=== PATIENT | male | born 1995 | race American Indian/Alaskan Native ===

== ENCOUNTER 2021-02-07 22:39 | Emergency (ER) | payer SELFPAY ==
[2021-02-07] MEDS ORDERED: Ondansetron PF 4 MG/2 ML Vial ONE (22:58)
[2021-02-07] MEDS ORDERED: Morphine 4 MG/ML VIAL ONE (22:58)
[2021-02-07] MEDS ORDERED: Boostrix 0.5 ML (Tdap) VIAL ONE (22:58)
[2021-02-07] MEDS ORDERED: diphenhydrAMINE 50 MG/ML VIAL ONE (22:58)
[2021-02-07 23:09] LABS: #Basophils 0.1 thou/uL (0.0-0.2); #Eosinphils 0.2 thou/uL (0.0-0.7); #Lymphocytes 2.1 thou/uL (1.20-3.40); #Monocytes 0.4 thou/uL (0.11-0.59); #Neutrophils 2.7 thou/uL (1.40-6.50); %Basophils 1.8 % (0.0-1.0); %Eosinophils 3.4 % (0.0-10.0); %Lymphocytes 38.5 % (21.0-51.0); %Monocytes 7.7 % (0.0-10.0); %Neutrophils 48.6 % (42.0-75.0); Mean Corpuscular Volume 91.1 fL (78.0-98.0); Mean Platelet Volume 6.1 fL (7.4-10.4); Platelet Count 230 thou/uL (130-400); RBC Distribution Width 11.2 % (11.5-14.5); Red Blood Cell (RBC) Count 5.18 mill/uL (4.70-6.10); White Blood Cell (WBC) Count 5.5 thou/uL (4.8-10.8)
[2021-02-07 23:14] LABS: PTT 30.7 sec (22.9-36.1); Prothrombin Time 13.8 sec (12.0-14.7)
[2021-02-07 23:22] LABS: Anion Gap 16 mmol/L (10-20); BUN (Urea Nitrogen) 10 mg/dL (8.9-20.6); CK (CPK) 40 U/L (30-200); Calc. Creatinine Clearance 0 mL/min (70-130); Calcium 9.6 mg/dL (7.8-10.44); Carbon Dioxide 28 mmol/L (22-29); Chloride 102 mmol/L (98-107); Glucose 108 mg/dL (70-105); Potassium 3.9 mmol/L (3.5-5.1); Sodium 142 mmol/L (136-145)
== END 2021-02-08 00:05 | disposition home or self-care (01) ==
LOC: BURERS 22:39
DX: T63.061A Toxic effect of venom of other North and South American snake, accidental (unintentional), initial encounter (principal)
CPT/HCPCS: 80048; 82550; 85025; 85384; 85610; 85730; 90471; 90715; 96374; 96375; J1200; J2270; J2405